=== PATIENT | male | born 1985 | race Caucasian/White ===

== ENCOUNTER 2022-08-18 00:40 | Emergency (ER) | payer OTHER ==
[~2022-08-18] VITALS: Ht 175 cm; Wt 77.1 kg
[~2022-08-18 00:40] MED LIST: ALBU8.5H2 IH; DOXY100C42 PO; PRD20T PO; TRAM50TA2 PO
[2022-08-18 00:54] VITALS: BP 120/86
[2022-08-18] MEDS ORDERED: PENI500T PO (01:06)
--- NOTE | 2022-08-18 01:07 | ED EENT ---
History of Present Illness General Chief Complaint: Dental Problems/Pain Stated Complaint: LEFT SIDE OF FACE SWOLLEN Nursing Triage Note: LEFT UPPER DENTAL PAIN/FACIAL SWELLING X2 DAYS. Source: patient Exam Limitations: no limitations History of Present Illness Date Seen by Provider: Aug 18, 2022 Time Seen by Provider: 00:56 Initial Comments 37-year-old male presents for left facial swelling. He thinks he has an abscessed tooth. He said it happened 1 other time. No fevers or chills. All other systems reviewed and negative except documented per HPI. Voice recognition software was used to help create this chart Allergies and Home Medications Allergies Coded Allergies: No Known Drug Allergies (Unverified , 02/01/14) Patient Home Medication List Home Medication List Reviewed: Yes Discontinued Medications Albuterol (Proair Hfa) 8.5 Gm Hfa.aer.ad, 2 PUFF IH Q4H PRN for SHORTNESS OF BREATH Discontinued Reason: No Longer Taking Prescribed by: LISS STREET on 02/01/14 1344 Last Action: Discontinued Doxycycline Monohydrate (Doxycycline) 100 Mg Capsule, 100 MG PO BID Discontinued Reason: No Longer Taking Prescribed by: LISS STRE[facility] on 02/01/14 1344 Last Action: Discontinued Prednisone (Deltasone Tablet) 20 Mg Tablet, 40 MG PO DAILY Discontinued Reason: No Longer Taking Prescribed by: LISS STRE[facility] on 02/01/14 1344 Last Action: Discontinued Tramadol Hcl (Tramadol Hcl) 50 Mg Tablet, 50 MG PO Q4H PRN for PAIN Discontinued Reason: No Longer Taking Prescribed by: LISS STRE[facility] on 02/01/14 1412 Last Action: Discontinued Review of Systems Review of Systems Constitutional: see HPI Past Zgjqzno-Rnzbap-Ozojbs Hx Patient Social History Tobacco Use?: Yes Substance use?: No Alcohol Use?: No Pt feels they are or have been: No Immunizations Up To Date First/Initial COVID19 Vaccinat: X2 Seasonal Allergies Seasonal Allergies: Yes Past Medical History Surgery/Hospitalization HX: EYE SX Physical Exam Vital Signs Vital Signs - First Documented 08/18/22 00:54 Temp 37.5 Pulse 84 Resp 16 B/P (MAP) 120/86 (97) Pulse Ox 97 O2 Delivery Room Air Height, Weight, BMI Height: 5'9" Weight: 155lbs. oz. 70.779904wt; 25.00 BMI Method:Stated General Appearance: WD/WN, no apparent distress Eyes: bilateral eye normal inspection, bilateral eye PERRL, bilateral eye EOMI Ears: bilateral ear auricle normal, bilateral ear canal normal, bilateral ear TM normal Nose: normal inspection Mouth/Throat: other (Left-sided facial swelling infraorbital region, malar region. There is a palpable abscess with fluctuance in the left upper dentition adjacent to the premolars on the gingival side.) Neck: non-tender, full range of motion, supple, normal inspection Cardiovascular: regular rate, rhythm, no murmur Respiratory: chest non-tender, lungs clear, normal breath sounds Procedures/Interventions I&D : Site: Left gingiva Blade Size: 11 Progress/Results/Core Measures Results/Orders Vital Signs/I&O 08/18/22 00:54 Temp 37.5 Pulse 84 Resp 16 B/P (MAP) 120/86 (97) Pulse Ox 97 O2 Delivery Room Air Blood Pressure Mean: 97 Departure Communication (Admissions) Patient is hemodynamically stable. There is a palpable abscess that was drained without difficulty at the bedside. Significant reduction in his facial swelling and pain. He is given a dose of penicillin prior to discharge and discharged with p.o. prescription for penicillin. Impression Primary Impression: Dental abscess Disposition: HOME, SELF-CARE Condition: Stable Departure-Patient Inst. Referrals: NO,LOCAL PHYSICIAN (PCP/Family) Primary Care Physician Patient Instructions: Tooth Abscess (DC) Add. Discharge Instructions: Take the antibiotics as prescribed until they are gone. Stop taking the Anbesol. Recommend use Tylenol as needed for pain. Return to the emergency department for any severe concerns. Follow-up with a dentist for any nonemergent needs. All discharge instructions reviewed with patient and/or family. Voiced understanding. Scripts Penicillin V Potassium (Penicillin V Potassium) 500 Mg Tablet 500 MG PO BID for 7 Days, #14 TAB Prov: LEI GILLIAM DO 08/18/22 LEI GILLIAM DO Aug 18, 2022 01:07
[2022-08-18] MEDS ORDERED: PENICILLIN V K 250 MG TAB PO ONE (01:15)
== END 2022-08-18 01:16 | disposition home or self-care (01) ==
LOC: EDUNIT# 00:40 → ER 00:47
DX: K04.7 Periapical abscess without sinus (principal); Z28.311 Partially vaccinated for COVID-19
CPT/HCPCS: 99283